=== PATIENT | female | born 1990 | race Caucasian/White ===

== ENCOUNTER 2018-07-24 05:39 | Inpatient (IN) | payer BC ==
[2018-07-24 06:18] VITALS: BMI 27.3
[2018-07-24] MEDS ORDERED: cefOXitin IV 2 gm in Dextrose 2 GM/50 ML BAG IVPB ONE (06:24)
[2018-07-24] MEDS ORDERED: Lactated Ringer's 1,000 ML IV ONE (06:24)
[2018-07-24 06:50] LABS: BASO % 0.4 % (0.0-2.0); EOS # 0.2 K/uL (0.0-0.7); EOS % 1.6 % (0.0-4.0); HEMOGLOBIN 13.5 g/dL (11.0-16.0); LYMPH # 1.6 K/uL (1.0-4.3); LYMPH % 14.1 % (20.0-40.0); MEAN CELL VOLUME 84.7 fL (81.0-99.0); MEAN CORPUSCULAR HEMOGLOBIN 29.2 pg (27.0-31.0); MEAN CORPUSCULAR HGB CONC 34.5 g/dL (33.0-37.0); MONO # 0.7 K/uL (0.0-0.8); MONO % 5.7 % (0.0-10.0); NEUT # 9.1 K/uL (1.8-7.0); NEUT % 78.2 % (50.0-75.0); RBC 4.61 Mil/uL (3.80-5.20); RED CELL DISTRIBUTION WIDTH 14.4 % (11.5-14.5); WHITE BLOOD COUNT 11.6 K/uL (4.8-10.8)
[2018-07-24 06:53] LABS: SQUAMOUS EPITHIAL 4 /hpf (0-5); URINE BILIRUBIN NEGATIVE (NEGATIVE); URINE BLOOD NEGATIVE (NEGATIVE); URINE CLARITY Clear (Clear); URINE COLOR Straw (YELLOW); URINE GLUCOSE (UA) NORMAL (Normal); URINE LEUKOCYTE ESTERASE NEG Leu/uL (Negative); URINE PROTEIN NEGATIVE (NEGATIVE); URINE UROBILINOGEN NORMAL mg/dL (0.2-1.0)
[2018-07-24] MEDS ORDERED: Sodium Citrate/Citric Acid 15 ml Sol PO ONE (06:54)
[2018-07-24] MEDS ORDERED: Sodium Citrate/Citric Acid 15 ml Sol ONE (06:59)
[2018-07-24] MEDS ORDERED: Oxytocin 20 units in LR 2,000 ML IV ONE (07:00)
[2018-07-24] MEDS ORDERED: Morphine 1 mg/ml preservative-free Inj(Duramorph) ONE (07:05)
[2018-07-24] MEDS ORDERED: Phenylephrine 10 mg/ml Inj ONE (07:17)
[2018-07-24 07:22] LABS: BARBITURATES, UR NEGATIVE (NEGATIVE); BENZODIAZEPINES, UR NEGATIVE (NEGATIVE); OPIATES, UR NEGATIVE (NEGATIVE); PHENCYCLIDINE, UR NEGATIVE (NEGATIVE)
[2018-07-24] MEDS ORDERED: Oxycodone/Acetaminophen 5/325 mg Tab PO PRN (08:44)
[2018-07-24] MEDS ORDERED: Tdap Vaccine 0.5 ml Vial (10-64 yrs) IM ONE (08:45)
--- NOTE | 2018-07-24 09:10 | OBADHP ---
Datetime: 07/24/2018 09:06 Admit Comment, IP Provider: at 40+weks came with c/o ctxs, irrg, no vb, lof+fm.pt is breech obhxx primi pmh den medcd pnv all nkda psh de soch de vwe /2 SONO BREECH a/p0 at 40+we breech in pain admit to l_d npo/ivf labs paijn m CONT OC AND EFM C/S . INFORMED CONSENT R/A/B Pelvic Type - PN: Adequate Extremities - PN: Normal Abdomen - PN: Normal Back - PN: Normal Breast - PN: Normal Lungs - PN: Normal Heart - PN: Normal Thyroid - PN: Normal Neurologic - PN: Normal HEENT - PN: Normal General - PN: Normal FHR - Baseline A Provider: 130 Contraction Comments Provider: irrg IP Hx Assessment: The History has been Reviewed and is Current Vital Signs Provider: Reviewed; Within Normal Limits IP Chief Complaint: Uterine contractions NICHD Variability Prov Fetus A: Moderate 6-25bpm NICHD Accel Fetus A IP Provider: [id number] FHR Category Provider Fetus A: Category I Dilatation, Provider: 2 Effacement, Provider: 60 Station, Provider: -2 Genitourinary Exam: Normal DTRs - PN: Normal EGA AdmitDate IP: 40.1 IP Adm Impression: Postterm, intrauterine IP Admit Plan: Admit to unit; Initiate labor protocol
--- NOTE | 2018-07-24 09:13 | OBDS ---
DELIVERY PERSONNEL Delivery Doctor: Jan Lema MD Box Liner: BETHANY Soares Anesthesiologist: Dr Gomes MATERNAL INFORMATION Delivery Anesthesia: Spinal Medications in Delivery: pitocin 20 units Estimated Blood Loss (ml): 700 Placenta Cultured: No Maternal Complications: None Provider Comments: DR LEMA PRIVATE BABY DELFRANCISCAVERSara RYLAN BREECH. APGAT 9/9 END CLEAN NO COM 9/9 NO LABOR SUMMARY EDC: 07/23/2018 00:00 No. Babies in Womb: 1 Attempted: No Labor Anesthesia: None LABOR INFORMATION Oxytocin: N/A Group B Beta Strep: Positive Steroids Given: None Reason Steroids Not Administered: Not Applicable MEMBRANES Membranes Rupture Method: Artificial Rupture of Membranes: 07/24/2018 07:31 Length of Rupture (hrs): 0.02 Amniotic Fluid Color: Clear Amniotic Fluid Amount: Moderate Amniotic Fluid Odor: Normal STAGES OF LABOR Stage 3 hrs: 0 Stage 3 min: 2 CSECTION DELIVERY Primary Indication: Breech Presentation CSection Urgency: Elective CSection Incidence: Primary Labor: No Labor Elective: Elective CSection Incision: Lower Uterine Transverse BABY A INFORMATION Delivery Date/Time: 07/24/2018 07:32 Method of Delivery: Born in Route : No : N/A Forceps: N/A Vacuum Extraction: N/A Shoulder Dystocia : No SHOULDER DYSTOCIA BABY A Delivery Date/Time: 07/24/2018 07:32 PRESENTATION/POSITION BABY A Presentation: Breech Cephalic Presentation: N/A Breech Presentation: Rylan PLACENTA INFORMATION BABY A Placenta Delivery Time : 07/24/2018 07:34 Placenta Method of Delivery: Manual Removal Placenta Status: Delivered SCORES BABY A Heart Rate 1 min: >100 bpm Resp Effort 1 min: Good Cry Reflex Irritability 1 min: Cough or Sneeze or Pulls Away Muscle Tone 1 min: Active Motion Color 1 min: Body [place], Extremities Blue Resuscitation Effort 1 min: Tactile Stimulation SCORE 1 MIN: 9 Heart Rate 5 min: >100 bpm Resp Effort 5 min: Good Cry Reflex Irritability 5 min: Cough or Sneeze or Pulls Away Muscle Tone 5 min: Active Motion Color 5 min: Body [place], Extremities Blue Resuscitation Effort 5 min: Tactile Stimulation SCORE 5 MIN: 9 INFORMATION BABY A Gestational Age at Delivery: 40.1 Gestational Status: Post-term Infant Outcome : Liveborn Condition : Stable Sex: Female IDENTIFICATION/MEDS BABY A ID Band Number: [id number] ID Band Location: Right Arm; Left Leg Sensor Applied: Yes Sensor Number: [id number] Sensor Location : Cord Clamp Vitamin K Given : Not Given Erythromycin Given: Not Given WEIGHT/LENGTH BABY A Infant Birthweight (gms): 3090 Infant Weight (lb): 6 Weight (oz): 13 Infant Length Inches: 20.00 Infant Length cms: 50.8 CORD INFORMATION BABY A No. Cord Vessels: 3 Nuchal Cord : Around Neck x1, Loose Cord Blood Taken: Yes Infant Suction: Mouth; Nose ASSESSMENT BABY A Complications: None Physical Findings at Delivery: Within Normal Limits Infant Respirations: Appears Normal Truck Rental Service Attendant/ALS Called : No Infant Care By: Dr Mcclure Transferred To: Remains with Mother
[2018-07-24] MEDS: Simethicone 80 mg Chewtab PO SCH ×4 (11:18→21:08)
[2018-07-24] MEDS: Prenatal Multivit/Folic Acid/Iron Tab PO SCH (11:23)
--- NOTE | 2018-07-25 05:16 | OP ---
PROCEDURE DATE: 07/24/2018 PREOPERATIVE DIAGNOSIS: A 28-year-old gravid 1, para 0, in labor with breech presentation and abdominal pain. POSTOPERATIVE DIAGNOSIS: A 28-year-old gravid 1, para 0, in labor with breech presentation and abdominal pain. SURGEON: Jan Lema MD TOPOGRAPHICAL DRAFTER: Jefe Chang MD PROCEDURE PERFORMED: Primary section. COMPLICATIONS: None. ESTIMATED BLOOD LOSS: 700 mL. DESCRIPTION OF PROCEDURE: After informed consent was obtained, the patient was brought to the operating room and placed on the table where spinal anesthesia was given. When anesthesia was found to be sufficient, she was prepped and draped in a normal sterile fashion. Examination under anesthesia revealed the uterus to be . A Mancera catheter was inserted under sterile condition. About 2 cm above the pubic bone, a skin incision was made with a knife and the subcutaneous tissue was cut with the Bovie. The fascia was then excised on both the sides using curved Prasad scissors. The fascia was from the site of the umbilicus and then at the site of the rectus muscle. Rectus muscle was . The peritoneum was incised and we went into the abdominal cavity. Bladder blade was placed. Bladder flap was created. Baby was found in kassy breech but was followed by the legs. Then, the head was delivered. Cord was clamped. The baby was handed to the awaiting porcelain enamel repairer. There was a cord around the neck which was reduced. Cord gas was taken. Placenta was taken and sent to Pathology. The uterus was exteriorized and cleared of all clots and debris. The uterine incision was closed using #1 Vicryl in running interlocking fashion. Second layer was closed with the same stitch. After that, the uterus was returned back to the abdominal cavity. The gutters were cleared of all the clots and debris. After that, the peritoneum was closed using a 2-0 Vicryl in a running interlocking fashion. Fascia was closed using #1 Vicryl in a running interlocking fashion. Skin was closed using a 3-0 Monocryl on a straight needle. The patient tolerated the procedure well. Lap, sponge, and instrument counts were correct x2. Jan Lema MD
[2018-07-25] MEDS: Oxycodone/Acetaminophen 5/325 mg Tab PO PRN ×2 (05:22→14:29)
--- NOTE | 2018-07-25 06:44 | OBPPN ---
Datetime: 07/25/2018 06:42 PP Pain Prov: Within normal limits PP Nausea Prov: Denies PP Abdomen/Uterus Prov: Normal PP Lochia Prov: Normal PP Extremities Prov: Normal PP Impression Prov: Normal progression PP Progress Note Prov: pt wwas seen at bed side, pain under control, no n/bv, tolerating deit, fol ey in ,min loc pod#1 cbc reg deit cont post op care cont pasinma encourage amb Vital Signs Provider PP: Reviewed; Within Normal Limits
[2018-07-25 07:37] LABS: HEMOGLOBIN 11.8 g/dL (11.0-16.0); MEAN CELL VOLUME 84.7 fL (81.0-99.0); MEAN CORPUSCULAR HEMOGLOBIN 29.1 pg (27.0-31.0); MEAN CORPUSCULAR HGB CONC 34.4 g/dL (33.0-37.0); MEAN PLATELET VOLUME 8.7 fL (7.2-11.7); RBC 4.03 Mil/uL (3.80-5.20); RED CELL DISTRIBUTION WIDTH 14.7 % (11.5-14.5); WHITE BLOOD COUNT 12.9 K/uL (4.8-10.8)
[2018-07-25] MEDS ORDERED: Bisacodyl 5mg EC Tab PO ONE (08:44)
[2018-07-25] MEDS ORDERED: Tdap Vaccine 0.5 ml Vial (10-64 yrs) IM ONE (10:00)
[2018-07-25] MEDS: Prenatal Multivit/Folic Acid/Iron Tab PO SCH (10:20)
[2018-07-25] MEDS: Simethicone 80 mg Chewtab PO SCH ×4 (10:54→21:36)
[2018-07-26] MEDS: Oxycodone/Acetaminophen 5/325 mg Tab PO PRN ×4 (08:56→23:35)
[2018-07-26] MEDS: Prenatal Multivit/Folic Acid/Iron Tab PO SCH (08:59)
[2018-07-26] MEDS: Simethicone 80 mg Chewtab PO SCH ×4 (08:59→22:06)
--- NOTE | 2018-07-26 15:56 | OBPPN ---
Datetime: 07/26/2018 09:55 PP Pain Prov: Within normal limits PP Pain Prov comment: breakthrough pain PP Nausea Prov: Denies PP Flatus Prov: Yes PP BM Prov: Yes PP Breasts Prov: Not Done PP Heart Prov: Normal PP Lungs Prov: Normal PP Abdomen/Uterus Prov: Normal PP Lochia Prov: Normal PP Vulva/Perineum Prov: Not Done PP CVA Tenderness Prov: Not Done PP Extremities Prov: Normal PP C/S Incision Prov: Normal PP Progress Prov: Normal PP Comments Phys Exam Prov: General: No acute distress. HEENT: normocephalic, atraumatic, EOMI Cardio: RRR, +S1, +S2 Pulm: CTA b/l GI: soft, non-rigid, slight tenderness upon deep palpation. : Uterine fundal height 2 fingerbreadths below umblicus. PP Impression Prov: Normal progression PP Plan Prov: Continue present management PP Progress Note Prov: Subjective: Patient was seen and examined today at bedside and per Dr. Lema's request. She indicates that sh e is experiencing mild breakthrough pain along lower abdomen. Mild discomfort endorsed along right sh oulder. She has been tolerating her diet appropriately. Patient has been baby with mini mal formula supplementation. Patient indicates that she has been urinating regularly with no dysuria. Patient indicates that she had a bowel movement this morning and has been passing flatus. Patient in dicates that she is having vaginal bleeding which amounted to 4 pad changes yesterday. Patient denies headache, blurry vision, chest pain, shortness of breath, nausea, vomiting, diarrhea. Objective: VSS See above PE. Assessment and Plan: 28 F POD #2 s/p c section for breech position. - Continue with post op care, pain control - Encourage ambulation and po water intake - Continue monitoring CBC, wbc increase to 12.9 from 11.6 - PO H_H 11.8/34.2 - Stable and Satisfactory condition and recovery - Anticipate discharge home in AM - Continue patient on regular diet - Continue patient on perocet prn for pain - Patient seen and case discussed with Dr. Mark Grey, PGY-1 Pt seen and examined with Dr Grey and agreed with his findings and POC after full discussion Vital Signs Provider PP: Reviewed; Within Normal Limits
[2018-07-27] MEDS: Oxycodone/Acetaminophen 5/325 mg Tab PO PRN ×2 (08:40→13:02)
[2018-07-27] MEDS: Simethicone 80 mg Chewtab PO SCH ×2 (09:07→13:09)
[2018-07-27] MEDS: Prenatal Multivit/Folic Acid/Iron Tab PO SCH (09:07)
--- NOTE | 2018-07-27 11:43 | OBPPN ---
Datetime: 07/27/2018 11:39 PP Pain Prov: Within normal limits PP Nausea Prov: Denies PP Flatus Prov: Yes PP Breasts Prov: Normal PP Heart Prov: Normal PP Lungs Prov: Normal PP Abdomen/Uterus Prov: Normal PP Lochia Prov: Normal PP Vulva/Perineum Prov: Normal PP CVA Tenderness Prov: Normal PP Extremities Prov: Normal PP C/S Incision Prov: Normal PP Comments Phys Exam Prov: ABD : soft, Nt ,BS - present UT- Firm Incision: Clean and dry, no abnormal discharge PP Impression Prov: Normal progression PP Plan Prov: Discharge PP Progress Note Prov: S/P Delivery, POD #3 Clinically Stable. Plan: Discharge Home as per Dr Lema Follow up with Dr Lema. Vital Signs Provider PP: Reviewed
--- NOTE | 2018-07-27 11:45 | OBDCSUM ---
Datetime: 07/27/2018 07:57 Discharged to, Provider: Home Follow up at, Provider: Dr Lema Disch Instr Activity: Bedrest; May Shower Disch Instr Diet: Regular Discharge Diet restrict Prov: none Discharge Instructions, Provider: Routine instructions given Discharge Diagnosis, Provider: Term Delivered Discharge Time: 07/27/2018 14:00 Follow up in weeks, Provider: one week Disch Referrals: None Contraception discussed, Prov: Yes Disch Activity Restrictions: No exercising; No lifting; No driving; No sexual activity; Nothing in v agina - [place], tampons, douche Discharge Comment, Provider: S/P uncomplicated Delivery, Clinically Stable. Discharge Diagnosis Prov Other: S/P uncomplicated Delivery, Clinically Stable.
[2018-07-27 19:42] VITALS: BP 116/73; PULSE 101; RESP 20; TEMP 97.4; O2SAT 99
== END 2018-07-27 15:41 | disposition home or self-care (01) | DRG 788 ==
LOC: C.EROB 05:39 → C.4D 06:09 → C.4M 11:00
PROVIDERS: ADMIT Obstetrics & Gynecology; ATTEND Obstetrics & Gynecology
PROC: 10D00Z1 Extraction of Products of Conception, Low, Open Approach (ICD-10-PCS; principal; 2018-07-24)
DX: O32.1XX0 Maternal care for breech presentation, not applicable or unspecified (principal); O69.81X0 Labor and delivery complicated by cord around neck, without compression, not applicable or unspecified; Z3A.40 40 weeks gestation of pregnancy; O99.824 Streptococcus B carrier state complicating childbirth; Z37.0 Single live birth